=== PATIENT | male | born 1950 | race Caucasian/White ===

== ENCOUNTER → 2024-01-29 13:30 | Outpatient (REF) | payer BC, SELFPAY ==
[2024-01-29 13:49] VITALS: BP 151/87; BP_SYST 67
== END ==
LOC: RADI 13:30
PROVIDERS: ATTENDING PHYSICIAN Family Medicine
DX: E04.1 Nontoxic single thyroid nodule (principal)
CPT/HCPCS: 88173; 10005

== ENCOUNTER 2024-02-29 14:47 | Emergency (ER) | payer BC, SELFPAY ==
[2024-02-29] VITALS (8 sets, daily range): BP systolic 116–142; BP diastolic 76–89; BMI 32.8
[2024-02-29 15:02] LABS: Glucose - Point of Care 145 mg/dl (70-99)
[2024-02-29] MEDS: NSS 250 IV (15:05)
--- NOTE | 2024-02-29 15:09 | ED.GENMED ---
History of Present Illness
General
Chief Complaint: Fainting/Passed Out
Source: patient and spouse
Exam Limitations: none
Time Seen by Provider: 02/29/24 15:05
Travel History
Have you had any contact with someone who has COVID-19?: No
Do you have any symptoms of coronavirus? Fever > 100 degrees, chills, cough, shortness of breath, sore throat, loss of taste or smell, muscle aches, or headache?: No
History of Present Illness
History of Present Illness:
73-year-old male punctured his left hand. En route to the hospital became lightheaded and syncopal. This recurred again in the wheelchair. Patient apparently becomes vasovagal very easily. Happens after multiple triggers including pain trauma
anesthesia. Patient passed out twice on a train and was evaluated at [facility] and felt to be vasovagal. He does see cardiology. He has a known first-degree block and right bundle branch block. No chest pain no shortness of breath.
Past History
Past History
ED Past Medical History: HTN
ED Past Surgical History: Orthopedic
Review of Systems
Review of Systems
All Other Systems: Not applicable
Constitutional: Denies fever
Respiratory: Denies trouble breathing
Cardiac: Denies chest pain
Phy Exam
Physical Exam
Physical Exam:
GENERAL: Alert and oriented. Patient was wheeled back slightly pale and diaphoretic. However when he got into the bed he appeared to improved. No scalp or head trauma
EYE: Orbits normal.
NECK: Supple, nontender
ENT: Pharynx without erythema
CARDIAC: Regular rate and rhythm without any obvious murmurs.
LUNGS: Clear breath sounds,normal
ABDOMEN: Soft, without focal tenderness or distention
NEUROLOGICAL: Alert and oriented , grossly non-focal
SKIN: Warm. Mildly diaphoretic. 3 cm V-shaped laceration at the crux of the thumb and second digit on the left hand.
MUSCULOSKELETAL: No edema,no deformity.Good color. Motor or sensory neurovascular intact in the left hand.
PSYCH: Normal and appropriate interaction.
Course
Orders/Labs/Results
Orders:
Orders
02/29/24 14:51
Electrocardiogram (*1) Urgent
Reason for Study: Syncope
EKG- Treatment ONCE
02/29/24 15:06
Cardiac Monitoring- Treatment ONCE
IV Insert/Care/Rem.- Treatment PRN
Pulse Ox/cont/shift [RESP] Stat
Quantity: 1
02/29/24 15:07
0.9% Sodium Chloride 250 ml [Nss] 250 ml IV BOLUS
Tetanus/Diphth/Acelpertussis [Adacel] 0.5 ml IM .ONCE ONE
02/29/24 15:22
Basic Metabolic Panel Urgent
Complete Blood Count/With Diff Urgent
Troponin I Urgent
02/29/24 17:24
Acetaminophen [Tylenol] 1,000 mg .ROUTE .ST[facility]-MED ONE
Tetanus/Diphth/Acelpertussis [Adacel] 0.5 ml .ROUTE .[facility]-MED ONE
02/29/24 17:26
Acetaminophen [Tylenol] 1,000 mg PO NOW STA
Abnormal Lab Results
02/29/24 02/29/24
15:00 15:22
RBC 4.53 L 10^6/uL
(4.70-6.10)
MCH 31.8 H pg
(27.0-31.0)
MPV 10.5 H fL
(7.4-10.4)
Chloride 109 H mmol/L
(98-107)
BUN 27 H mg/dl
(9-20)
Glucose 141 H mg/dl
(70-99)
POC Glucose 145 H mg/dl
(70-99)
02/29/24 15:22
02/29/24 15:22
Vital Signs
Initial and Last Documented VS:
Initial Vital Signs
Pulse Resp BP Pulse Ox
87 16 127/81 98
02/29/24 14:53 02/29/24 14:53 02/29/24 14:53 02/29/24 14:53
Last Documented Vital Signs
Temp Pulse Resp BP Pulse Ox
97.7 F 67 16 140/89 98
02/29/24 15:22 02/29/24 17:45 02/29/24 14:53 02/29/24 17:00 02/29/24 17:45
Procedures
Laceration Closure
Left Hand:
Status of Wound: clean
Size of Wound in cm: 3
Description of Wound Edges: sharp
Preparation: cleaned with saline and cleaned with Betadine
Anesthesia: 1% Lidocaine
Revision/Debridement: routine- no revision
Wound exploration: explored to base- no FB and no tendon involvement
Type of Closure: single layer closure
Skin Closure Material: 4-0 nylon
Number of sutures: 10
*Pulse Oximetry
Patient hypoxic: no
*EKG
Interpreted by ED Provider?: Yes
Interpretation: abnormal
Comparison EKG: changes noted
Heart Rate: 52
Rate: bradycardiac
Rhythm: sinus
[place]: normal axis
Interval: first degree heart block
QRS Pattern: right bundle branch block
Ischemia: no ischemia
*Electronic Masking System Operator Interpretation
Rate: normal
Interpretation: normal
Heart Rate: 68
Rhythm: sinus
*Critical Care Note
Total Time (30-74mins, 75-104mins- exclusive of procedures): Not Applicable
Update Note
Update Note:
Patient is remained stable and nontoxic. No further episodes of syncope. No monitor issues. Discussed with cardiology. Today's episode was consistent with a vasovagal syncope that he has had multiple times in the past. However I did have some
concern with his first-degree block and right bundle branch block. This was discussed with cardiology. Admission was offered to the patient and and recommended given the unlikely but minimal uncertainty that this could have been more serious.
However they have elected for discharge to follow-up understanding that although this likely is vasovagal there could be a more serious or life-threatening issue. He also becomes mildly hypoxic when he sleeps. He has not CPAP and was stressed to
use his CPAP at night
ED Attending Note
-
Portions of this chart may have been created with voice recognition software.� Occasional wrong word or��sound alike� substitutions may have occurred due to the inherent limitations of voice recognition software.
Discharge Plan
Departure
Patient Disposition: Home (Routine Discharge)
Date of Disposition: 02/29/24
Time of Disposition: 18:08
Patient with high blood pressure during this ER visit?: Yes
Discharge Problem:
Syncope, Hand laceration
Instructions: Syncope (Fainting) (DC), Laceration Repair With Stitches ED, BLOOD PRESSURE
Prescriptions:
No Action
lisinopril 20 mg Tablet
20 mg PO HS
vitamin B complex Tablet
1 tab PO DAILY
fluticasone propionate [Flonase] 50 mcg/actuation [place],Suspension
2 spray INTRANASAL HSPRN PRN (Reason: congestion)
Systane (PF) 0.4-0.3 % Dropperette
1 drp BOTH EYES DAILYPRN PRN (Reason: dry eyes)
Magnesium Complex + D3
1 tab PO HS
Referrals:
Kanwal Sahu MD [Family Provider] -
Nury Abdalla MD [Active] -
Activity Restrictions/Additional Instructions:
Call the cardiology group Saturday for close follow-up
Return immediately with any unusual episodes of passing out
Suture removal in about a week
Interventions
Interventions:
*Risk Screen - Suicide Last Done: 02/29/24 14:53
*General Assessment Last Done: 02/29/24 14:53
*Neglect/Abuse Screening Last Done: 02/29/24 14:53
ED- Fall Risk Assessment Last Done: 02/29/24 15:18
*ED COVID-19 Vaccine History Last Done: 02/29/24 15:16
ED- Cardiac Assessment Last Done: 02/29/24 15:16
ED- Neurological Assessment Last Done: 02/29/24 15:16
Discharge Date and Time
Print Language: [place]CI[place]
[2024-02-29 15:29] LABS: % Basophils 0.6 % (0-2); % Eosinophils 2.6 % (0-6); % Immature Granulocytes 0.1 % (0-0.5); % Lymphocytes 33.7 % (20.5-51.1); % Monocytes 6.6 % (1.7-9.3); % Neutrophils 56.4 % (42.2-75.2); Absolute Basophils 0.1 10^3/uL (0-0.2); Absolute Eosinophils 0.2 10^3/uL (0-0.7); Absolute Lymphocytes 2.9 10^3/uL (1.2-3.4); Absolute Monocytes 0.6 10^3/uL (0.1-0.6); Absolute Neutrophils 4.8 10^3/uL (1.4-6.5); Hematocrit 41.2 % (39.0-52.0); Hemoglobin 14.4 g/dL (13.0-18.0); Mean Corpuscular Hgb 31.8 pg (27.0-31.0); Mean Corpuscular Volume 90.9 fL (80.0-94.0); Mean Platelet Volume 10.5 fL (7.4-10.4); Nucleated Red Blood Cells % 0 % (-); Platelet Count 226 10^3/uL (130-400); Red Blood Cell Count 4.53 10^6/uL (4.70-6.10); Red Cell Dist. Width 12.8 % (11.5-14.5); White Blood Cell Count 8.5 10^3/uL (4.8-10.8)
[2024-02-29 15:41] LABS: Blood Urea Nitrogen 27 mg/dl (9-20); Calcium 9.6 mg/dl (8.4-10.2); Carbon Dioxide 24 mmol/L (22-30); Chloride 109 mmol/L (98-107); Estimated Creatinine Clearance 100 ml/min; Glucose 141 mg/dl (70-99); Potassium 4.2 mmol/L (3.5-5.1); Sodium 138 mmol/L (135-145); eGFR > 60.00
[2024-02-29 15:51] LABS: Troponin I < 0.012 ng/ml
[2024-02-29] MEDS: TYLENOL 1000 MG PO (17:28)
[2024-02-29] MEDS: ADACEL 0.5 ML IM (17:29)
== END 2024-02-29 18:13 | disposition home or self-care (01) ==
LOC: EMR 14:47
PROVIDERS: EMERGENCY PHYSICIAN Emergency Medicine; FAMILY PHYSICIAN Internal Medicine
DX: R55 Syncope and collapse (principal); S61.412A Laceration without foreign body of left hand, initial encounter; X58.XXXA Exposure to other specified factors, initial encounter; I10 Essential (primary) hypertension; I45.10 Unspecified right bundle-branch block; Z23 Encounter for immunization
CPT/HCPCS: 99284; 96360; 12002; 90471; 80048; 82962; 84484; 85025; 90715; 93005

== ENCOUNTER → 2024-04-20 13:28 | Outpatient (REF) | payer BC, SELFPAY | LOC: RCS 13:28 | PROVIDERS: ATTENDING PHYSICIAN Internal Medicine Cardiovascular Disease; FAMILY PHYSICIAN Family Medicine | DX: I10 Essential (primary) hypertension (principal); I47.29 Other ventricular tachycardia; I45.10 Unspecified right bundle-branch block | CPT/HCPCS: 93017 ==

== ENCOUNTER → 2024-05-08 12:49 | Outpatient (REF) | payer BC, SELFPAY | LOC: HWRCS 12:49 | PROVIDERS: ATTENDING PHYSICIAN Internal Medicine Cardiovascular Disease; FAMILY PHYSICIAN Family Medicine | DX: I10 Essential (primary) hypertension (principal); I47.29 Other ventricular tachycardia; I45.10 Unspecified right bundle-branch block | CPT/HCPCS: 93306 ==

== ENCOUNTER → 2024-06-01 13:32 | Outpatient (REF) | payer BC, SELFPAY | LOC: RAD 13:32 | PROVIDERS: ATTENDING PHYSICIAN Family Medicine | DX: R20.0 Anesthesia of skin (principal) | CPT/HCPCS: 72052; 95886; 95911 ==

== ENCOUNTER 2024-09-27 14:25 | Emergency (ER) | payer MEDICARE, OTHER, SELFPAY ==
[2024-09-27] VITALS (13 sets, daily range): BP systolic 42–150; BP diastolic 34–88; PULSE 79–83
--- NOTE | 2024-09-27 15:28 | ED.GENMED ---
History of Present Illness
General
Chief Complaint: Urinary Symptoms
Source: patient and spouse
Exam Limitations: none
Time Seen by Provider: 09/27/24 15:19
Nursing documentation reviewed up to this point in time: agreed with
History of Present Illness
History of Present Illness:
74 yo male w h/o HTN, states for past 2 days has been unable to empty bladder, urinating small amounts every 15-20 minutes. Has suprapubic pain, low back ache. He felt clammy 2 hours ago, sitting in the waiting room he became faint and his
made him lay down on the floor of the waiting room where he lost consciousness for about 30 seconds.
Also states after eating 'funny green beans' 2 days ago has been having small amounts mucus stools every time he tries to urinate.
Has felt chilled, did not take temperature.
Denies N/V.
Denies chest pain or trouble breathing.
Past History
Past History
ED Past Medical History: HTN
ED Past Surgical History: Orthopedic
Social History
Tobacco: Non-smoker
Alcohol: Occasional
Personal:
Living: with family
Employment: Retired
Review of Systems
Review of Systems
Allergies reviewed?: Yes
All Other Systems: ROS reviewed and negative except as documented in HPI and ROS
Constitutional: Reports chills; Denies fever
Respiratory: Denies trouble breathing
Cardiac: Reports syncope; Denies chest pain
ABD/GI: Reports diarrhea and anorexia; Denies nausea, vomiting, bloody stools or black stools
: Reports frequency and difficulty voiding; Denies dysuria
Musculoskeletal: Reports no symptoms
Skin: Reports no symptoms
Neurological: Reports no symptoms
Phy Exam
Physical Exam
Physical Exam:
GENERAL: No acute distress. A&Ox3.
CONSTITUTIONAL: Afebrile.
EYES: PERRL, conjunctivae normal
ENMT: moist mucus membranes, Pharynx nl
RESPIRATORY: Regular respirations, nonlabored, lungs clear.
CARDIOVASCULAR: Regular rate and rhythm, no murmurs, no rubs.
GI: Soft, suprapubic tenderness, hypoactive BS.
MUSCULOSKELETAL: Moves with ease. Well perfused.
SKIN: Warm, dry, pink
PSYCH: Normal mood and affect. Well kept, interactive and appropriate
NEUROLOGIC: Awake, alert and oriented. No focal neurological deficits
Course
Orders/Labs/Results
Orders:
Orders
09/27/24 14:56
Electrocardiogram (*1) Urgent
Reason for Study: Other
Other Reason for Exam: FAINTING/PASSING OUT
EKG- Treatment ONCE
09/27/24 15:20
Bladder Scan- Treatment ONCE
09/27/24 15:21
Carter Placement- Treatment ONCE
Reason for insertion: Acute Retention
09/27/24 15:28
Lidocaine 2% [Lidocaine Uro-Jet 2%] 1 syringe TOPICAL NOW STA
09/27/24 15:38
Complete Blood Count/With Diff Urgent
Comprehensive Metabolic Panel Urgent
09/27/24 16:14
Urinalysis Reflex To Culture Urgent
Date Specimen was Collected: 09/27/24
Time Specimen was Collected: 16:09
Abnormal Lab Results
09/27/24 09/27/24
15:38 16:14
WBC 12.2 H 10^3/uL
(4.8-10.8)
RBC 4.46 L 10^6/uL
(4.70-6.10)
Absolute Neuts (auto) 10.4 H 10^3/uL
(1.4-6.5)
Absolute Lymphs (auto) 0.9 L 10^3/uL
(1.2-3.4)
Absolute Monos (auto) 0.8 H 10^3/uL
(0.1-0.6)
Neutrophils % 85.3 H %
(42.2-75.2)
Lymphocytes % 7.1 L %
(20.5-51.1)
Carbon Dioxide 20 L mmol/L
(22-30)
BUN 25 H mg/dl
(9-20)
Glucose 128 H mg/dl
(70-99)
Urine Ketones Trace A
(Negative)
09/27/24 15:38
09/27/24 15:38
Vital Signs
Initial and Last Documented VS:
Initial Vital Signs
Temp Pulse Resp BP Pulse Ox
98 F 84 16 121/84 99
09/27/24 14:29 09/27/24 14:29 09/27/24 14:29 09/27/24 14:29 09/27/24 14:29
Last Documented Vital Signs
Temp Pulse Resp BP Pulse Ox
98 F 92 18 137/88 99
09/27/24 14:29 09/27/24 17:40 09/27/24 17:40 09/27/24 17:40 09/27/24 14:29
MDM/Problems Addressed
Differential Diagnosis Includes:
Acute urine retention, UTI, enlarged prostate
Vasovagal episode
MDM/Problems Addressed:
74 yo male w h/o HTN, states for past 2 days has been unable to empty bladder, urinating small amounts every 15-20 minutes. Has suprapubic pain, low back ache. He felt clammy 2 hours ago, sitting in the waiting room he became faint and his
made him lay down on the floor of the waiting room where he lost consciousness for about 30 seconds.
Also states after eating 'funny green beans' 2 days ago has been having small amounts mucus stools every time he tries to urinate.
Has felt chilled, did not take temperature.
Denies N/V.
Denies chest pain or trouble breathing.
Afebrile, NAD
After Urojet injected into urethra, pt became faint, pale, BP dropped to 40/ Liter NSS hung
Pt states once his doctor simply put a q tip into the tip of his penis and he fainted.
16:30
CBC: WBC 12.2 (reactive to stress)
CMP unremarkable
U/A: Neg
1700:
Pt and state he has had several episodes of vasovagal fainting, triggered by pain, fear, states 'it doesn't take much.'
Pt states he's not concerned about mucus stools, 'I just have to eat something.'
Abdomen now benign.
Orthostatics
*Critical Care Note
Total Time (30-74mins, 75-104mins- exclusive of procedures): Not Applicable
ED Attending Note
-
Portions of this chart may have been created with voice recognition software.� Occasional wrong word or��sound alike� substitutions may have occurred due to the inherent limitations of voice recognition software.
Discharge Plan
Departure
Patient Disposition: Home (Routine Discharge)
Date of Disposition: 09/27/24
Time of Disposition: 17:07
Patient with high blood pressure during this ER visit?: No
Condition: Good
Discharge Problem:
Acute retention of urine, Vasovagal episode
Instructions: How to Care for Your Carter Catheter, Male, Vasovagal Response (DC), Urinary retention - Discharge instructions
Prescriptions:
No Action
lisinopril 20 mg Tablet
20 mg PO HS
vitamin B complex Tablet
1 tab PO DAILY
fluticasone propionate [Flonase] 50 mcg/actuation [place],Suspension
2 spray INTRANASAL HSPRN PRN (Reason: congestion)
Systane (PF) 0.4-0.3 % Dropperette
1 drp BOTH EYES DAILYPRN PRN (Reason: dry eyes)
Magnesium Complex + D3
1 tab PO HS
Referrals:
Chelsea Martinez MD [Family Provider] -
Sarath Chahal Jr., MD [Active] - Call in 1-3 days for appt
Activity Restrictions/Additional Instructions:
As we discussed, call the Urology office tomorrow and ask when you should follow up.
Interventions
Interventions:
*Risk Screen - Suicide Last Done: 09/27/24 14:29
*General Assessment Last Done: 09/27/24 14:29
*Neglect/Abuse Screening Last Done: 09/27/24 14:29
ED- Fall Risk Assessment Last Done: 09/27/24 16:30
*ED COVID-19 Vaccine History Last Done: 09/27/24 17:10
*Nursing Disposition Last Done: 09/27/24 17:10
ED-Male Genitourinary Assessment Last Done: 09/27/24 16:30
Discharge Date and Time
Discharge Date/Time: 09/27/24 17:10
Print Language: ROMANSH
[2024-09-27 15:44] LABS: % Basophils 0.3 % (0-2); % Eosinophils 0.6 % (0-6); % Immature Granulocytes 0.2 % (0-0.5); % Lymphocytes 7.1 % (20.5-51.1); % Monocytes 6.5 % (1.7-9.3); % Neutrophils 85.3 % (42.2-75.2); Absolute Eosinophils 0.1 10^3/uL (0-0.7); Absolute Lymphocytes 0.9 10^3/uL (1.2-3.4); Absolute Monocytes 0.8 10^3/uL (0.1-0.6); Absolute Neutrophils 10.4 10^3/uL (1.4-6.5); Hematocrit 41.1 % (39.0-52.0); Hemoglobin 13.8 g/dL (13.0-18.0); Mean Corp Hgb Conc. 33.6 g/dL (33.0-37.0); Mean Corpuscular Hgb 30.9 pg (27.0-31.0); Mean Corpuscular Volume 92.2 fL (80.0-94.0); Mean Platelet Volume 9.8 fL (7.4-10.4); Nucleated Red Blood Cells % 0 % (-); Platelet Count 211 10^3/uL (130-400); Red Blood Cell Count 4.46 10^6/uL (4.70-6.10); Red Cell Dist. Width 13.1 % (11.5-14.5); White Blood Cell Count 12.2 10^3/uL (4.8-10.8)
[2024-09-27] MEDS: LIDOCAINE URO-JET 2% 1 SYRINGE TOPICAL (16:09)
[2024-09-27 16:30] LABS: Urine Albumin Negative (Neg - Trace); Urine Bilirubin Negative (Negative); Urine Character Clear (Clear); Urine Color Yellow; Urine Glucose Negative (Negative); Urine Ketone Trace (Negative); Urine Leukocyte Negative (Negative); Urine Nitrite Negative (Negative); Urine Occult Blood Negative (Negative); Urine Specific Gravity 1.025 (<1.030); Urine Urobilinogen Negative (Neg - 1+)
[2024-09-27 16:31] LABS: ALT (SGPT) 27 U/L (0-50); AST (SGOT) 34 U/L (17-59); Albumin 4.4 g/dl (3.5-5.0); Alkaline Phosphatase 64 U/L (38-126); Blood Urea Nitrogen 25 mg/dl (9-20); Calcium 9.2 mg/dl (8.4-10.2); Carbon Dioxide 20 mmol/L (22-30); Chloride 106 mmol/L (98-107); Glucose 128 mg/dl (70-99); Potassium 4.2 mmol/L (3.5-5.1); Sodium 139 mmol/L (135-145); Total Bilirubin 1.1 mg/dl (0.2-1.3); eGFR 58.01
== END 2024-09-27 17:10 | disposition home or self-care (01) ==
LOC: EMR 14:25
PROVIDERS: Registered Nurse; EMERGENCY PHYSICIAN Emergency Medicine; FAMILY PHYSICIAN Family Medicine
DX: R33.9 Retention of urine, unspecified (principal); R55 Syncope and collapse; I10 Essential (primary) hypertension; R10.9 Unspecified abdominal pain; M54.50 Low back pain, unspecified
CPT/HCPCS: 99283; 80053; 81003; 85025; 93005

== ENCOUNTER 2024-10-09 09:04 | Emergency (ER) | payer MEDICARE, OTHER, SELFPAY ==
[2024-10-09 09:06] VITALS: BP 144/82
--- NOTE | 2024-10-09 10:50 | ED.GENMED ---
History of Present Illness
General
Chief Complaint: Urinary Symptoms
Time Seen by Provider: 10/09/24 10:43
History of Present Illness
History of Present Illness:
74-year-old male presents to the emergency department for evaluation of fever and cloudy urine. Has had a Carter catheter indwelling for the past week and a half, catheter was exchanged during a voiding trial earlier this week that he subsequently
failed. Developed a fever of 102 Fahrenheit yesterday with rigors and noted cloudy urine this morning. Denies abdominal pain, nausea, vomiting, or diarrhea. Did have acetaminophen this morning
Past History
Past History
ED Past Medical History: HTN
ED Past Surgical History: Orthopedic
Social History
Tobacco: Non-smoker
Alcohol: Occasional
Personal:
Living: with family
Employment: Retired
Review of Systems
Review of Systems
Allergies reviewed?: Yes
All Other Systems: ROS reviewed and negative except as documented in HPI and ROS
Phy Exam
Physical Exam
Physical Exam:
GEN: Well appearing, NAD, WDWN
HEENT: Oral mucosa moist, no scleral icterus
Cardiac: Regular rate and rhythm, no murmurs
Lung: No respiratory distress, no tachypnea
Abdomen: Soft, grossly nontender
MSK: No gross deformity or injuries
Skin: Good color, no pallor or jaundice, no rashes
Neuro: AO x3, moves all extremities freely
Psych: Calm, cooperative
Course
Orders/Labs/Results
Orders:
Orders
10/09/24 11:08
Complete Blood Count/With Diff Urgent
Comprehensive Metabolic Panel Urgent
Blood Culture Q30M
KARLY Source: Blood/Venous
Specimen Description:
10/09/24 11:13
Urinalysis Reflex To Culture Urgent
Date Specimen was Collected: 10/09/24
Time Specimen was Collected: 11:11
Urine Microscopic Reflex Cult Urgent
Blood Culture Q30M
KARLY Source: Blood/Venous
Specimen Description:
Urine Culture Urgent
KARLY Source: U
Specimen Description:
Date Specimen was Collected: 10/09/24
Time Specimen was Collected: 11:11
10/09/24 12:13
Carter Placement- Treatment ONCE
Reason for insertion: Chronic Carter on Admit
CefTRIAXone [Rocephin] 1,000 mg IV NOW STA
10/09/24 12:39
Lidocaine 2% [Lidocaine Uro-Jet 2%] 1 syringe .ROUTE .[facility]-MED ONE
Abnormal Lab Results
10/09/24 10/09/24
11:08 11:13
RBC 4.07 L 10^6/uL
(4.70-6.10)
Hgb 12.8 L g/dL
(13.0-18.0)
Hct 36.8 L %
(39.0-52.0)
MCH 31.4 H pg
(27.0-31.0)
Absolute Neuts (auto) 7.7 H 10^3/uL
(1.4-6.5)
Absolute Lymphs (auto) 1.1 L 10^3/uL
(1.2-3.4)
Absolute Monos (auto) 0.7 H 10^3/uL
(0.1-0.6)
Neutrophils % 78.6 H %
(42.2-75.2)
Lymphocytes % 10.9 L %
(20.5-51.1)
BUN 21 H mg/dl
(9-20)
Glucose 137 H mg/dl
(70-99)
Total Protein 6.2 L g/dl
(6.3-8.2)
Ur Occult Blood Reflex 4+ A
(Negative)
Urine Nitrite (Reflex) Positive A
(Negative)
Leukocyte Esterase Rfl 2+ A
(Negative)
Urine RBC 80-90 A /HPF
(0-2)
Urine WBC (Reflex) >100 A /HPF
(0-5)
Urine Bacteria (Reflex) Many A
(Negative)
Urine Albumin (Reflex) 2+ A
(Neg - Trace)
10/09/24 11:08
10/09/24 11:08
Vital Signs
Initial and Last Documented VS:
Initial Vital Signs
Temp Pulse Resp BP Pulse Ox
98.1 F 73 16 144/82 96
10/09/24 09:06 10/09/24 09:06 10/09/24 09:06 10/09/24 09:06 10/09/24 09:06
Last Documented Vital Signs
Temp Pulse Resp BP Pulse Ox
98.1 F 67 16 124/81 97
10/09/24 09:06 10/09/24 11:10 10/09/24 12:17 10/09/24 12:00 10/09/24 12:00
MDM/Problems Addressed
MDM/Problems Addressed:
Patient with evidence of CAUTI, afebrile with normal labs here in the ED, reasonable for d/c home
*Critical Care Note
Total Time (30-74mins, 75-104mins- exclusive of procedures): Not Applicable
ED Attending Note
-
Portions of this chart may have been created with voice recognition software.� Occasional wrong word or��sound alike� substitutions may have occurred due to the inherent limitations of voice recognition software.
Discharge Plan
Departure
Patient Disposition: Home (Routine Discharge)
Date of Disposition: 10/09/24
Time of Disposition: 12:14
Patient with high blood pressure during this ER visit?: No
Discharge Problem:
Catheter-associated urinary tract infection
Instructions: Urinary Tract Infection, Adult (DC)
Prescriptions:
New
cefdinir 300 mg capsule
300 mg PO Q12H 7 Days Qty: 14 0RF
No Action
lisinopril 20 mg Tablet
20 mg PO HS
vitamin B complex Tablet
1 tab PO DAILY
fluticasone propionate [Flonase] 50 mcg/actuation [place],Suspension
2 spray INTRANASAL HSPRN PRN (Reason: congestion)
Systane (PF) 0.4-0.3 % Dropperette
1 drp BOTH EYES DAILYPRN PRN (Reason: dry eyes)
Magnesium Complex + D3
1 tab PO HS
Referrals:
Chelsea Martinez MD [Family Provider] -
Activity Restrictions/Additional Instructions:
Return if fever does not resolve
Interventions
Interventions:
*Risk Screen - Suicide Last Done: 10/09/24 09:06
*General Assessment Last Done: 10/09/24 11:11
*Neglect/Abuse Screening Last Done: 10/09/24 09:06
ED- Fall Risk Assessment Last Done: 10/09/24 12:51
*ED COVID-19 Vaccine History Last Done: 10/09/24 11:11
*Nursing Disposition Last Done: 10/09/24 12:51
ED-Male Genitourinary Assessment Last Done: 10/09/24 11:11
Discharge Date and Time
Discharge Date/Time: 10/09/24 12:50
Print Language: [place]
[2024-10-09 11:00] VITALS: BP 109/78
[2024-10-09 11:15] LABS: % Basophils 0.3 % (0-2); % Eosinophils 2.5 % (0-6); % Immature Granulocytes 0.2 % (0-0.5); % Lymphocytes 10.9 % (20.5-51.1); % Monocytes 7.5 % (1.7-9.3); % Neutrophils 78.6 % (42.2-75.2); Absolute Eosinophils 0.3 10^3/uL (0-0.7); Absolute Lymphocytes 1.1 10^3/uL (1.2-3.4); Absolute Monocytes 0.7 10^3/uL (0.1-0.6); Absolute Neutrophils 7.7 10^3/uL (1.4-6.5); Hematocrit 36.8 % (39.0-52.0); Hemoglobin 12.8 g/dL (13.0-18.0); Mean Corp Hgb Conc. 34.8 g/dL (33.0-37.0); Mean Corpuscular Hgb 31.4 pg (27.0-31.0); Mean Corpuscular Volume 90.4 fL (80.0-94.0); Mean Platelet Volume 9.5 fL (7.4-10.4); Nucleated Red Blood Cells % 0 % (-); Platelet Count 209 10^3/uL (130-400); Red Blood Cell Count 4.07 10^6/uL (4.70-6.10); Red Cell Dist. Width 12.4 % (11.5-14.5); White Blood Cell Count 9.8 10^3/uL (4.8-10.8)
[2024-10-09 11:33] LABS: ALT (SGPT) 20 U/L (0-50); AST (SGOT) 20 U/L (17-59); Albumin 3.7 g/dl (3.5-5.0); Alkaline Phosphatase 52 U/L (38-126); Blood Urea Nitrogen 21 mg/dl (9-20); Calcium 8.8 mg/dl (8.4-10.2); Carbon Dioxide 27 mmol/L (22-30); Chloride 102 mmol/L (98-107); Glucose 137 mg/dl (70-99); Potassium 4.4 mmol/L (3.5-5.1); Sodium 135 mmol/L (135-145); Total Bilirubin 0.9 mg/dl (0.2-1.3); Total Protein 6.2 g/dl (6.3-8.2); eGFR > 60.00
[2024-10-09 11:58] LABS: Urine Albumin 2+ (Neg - Trace); Urine Bilirubin Negative (Negative); Urine Character Very Cloudy (Clear); Urine Color Yellow; Urine Glucose Negative (Negative); Urine Ketone Negative (Negative); Urine Leukocyte 2+ (Negative); Urine Nitrite Positive (Negative); Urine Occult Blood 4+ (Negative); Urine Specific Gravity 1.015 (<1.030); Urine Urobilinogen Negative (Neg - 1+)
[2024-10-09 12:00] VITALS: BP 124/81
[2024-10-09 12:17] LABS: Urine Red Blood Cell 80-90 /HPF (0-2); Urine Squamous Cell 0-2 /LPF (Few); Urine White Cell >100 /HPF (0-5)
[2024-10-09 12:18] LABS: Urine Bacteria Many (Negative)
[2024-10-09 12:19] LABS: Urine Mucus Few; Urine Urothelial Cell 0-2 /LPF (FEW)
[2024-10-09] MEDS: ROCEPHIN 1000 MG IV (12:46)
== END 2024-10-09 12:50 | disposition home or self-care (01) ==
LOC: EMR 09:04
PROVIDERS: Physician Assistant; EMERGENCY PHYSICIAN Student in an Organized Health Care Education/Training Program; FAMILY PHYSICIAN Family Medicine
DX: T83.518A Infection and inflammatory reaction due to other urinary catheter, initial encounter (principal); N39.0 Urinary tract infection, site not specified; I10 Essential (primary) hypertension
CPT/HCPCS: 99283; 96374; 80053; 81003; 81015; 85025; 87040; 87077; 87086; 87186

== ENCOUNTER → 2024-12-07 12:28 | Outpatient (REF) | payer MEDICARE, OTHER, SELFPAY | LOC: RAD 12:28 | PROVIDERS: ATTENDING PHYSICIAN Nurse Practitioner Primary Care; FAMILY PHYSICIAN Family Medicine | DX: C43.59 Malignant melanoma of other part of trunk (principal) | CPT/HCPCS: 71046 ==

== ENCOUNTER → 2025-01-07 14:37 | Outpatient (REF) | payer MEDICARE, OTHER, SELFPAY ==
[2025-01-07 15:54] LABS: Urine Albumin 2+ (Neg - Trace); Urine Bilirubin Negative (Negative); Urine Character Cloudy (Clear); Urine Color Yellow; Urine Glucose Negative (Negative); Urine Ketone Negative (Negative); Urine Leukocyte 3+ (Negative); Urine Nitrite Positive (Negative); Urine Occult Blood 2+ (Negative); Urine Urobilinogen Negative (Neg - 1+)
[2025-01-07 16:07] LABS: Urine Bacteria Moderate (Negative); Urine White Cell >100 /HPF (0-5)
== END ==
LOC: REG 14:37
PROVIDERS: ATTENDING PHYSICIAN Specialist; FAMILY PHYSICIAN Family Medicine
DX: N39.0 Urinary tract infection, site not specified (principal)
CPT/HCPCS: 81003; 81015; 87077; 87086; 87186

== ENCOUNTER → 2025-03-25 10:14 | Outpatient (REF) | payer MEDICARE, OTHER, SELFPAY | LOC: RCS 10:14 | PROVIDERS: ATTENDING PHYSICIAN Physician Assistant; FAMILY PHYSICIAN Family Medicine; OTHER PHYSICIAN Internal Medicine Cardiovascular Disease | DX: Z01.818 Encounter for other preprocedural examination (principal) | CPT/HCPCS: 93005 ==

== ENCOUNTER → 2025-06-22 09:12 | Outpatient (REF) | payer MEDICARE, OTHER, SELFPAY | LOC: RCS 09:12 | PROVIDERS: ATTENDING PHYSICIAN Nurse Practitioner; FAMILY PHYSICIAN Family Medicine | DX: R60.0 Localized edema (principal) | CPT/HCPCS: 93306 ==